=== PATIENT | male | born 1940 | race Two or more races ===

== ENCOUNTER → 2022-01-23 13:27 | Outpatient (BNVA) | payer OTHER, SELFPAY | PROVIDERS: PCP Internal Medicine; Visit Provider Psychiatry & Neurology Neurology | DX: I69.351 Hemiplegia and hemiparesis following cerebral infarction affecting right dominant side (principal); G47.00 Insomnia, unspecified; R06.83 Snoring; G25.81 Restless legs syndrome | CPT/HCPCS: 99202 ==

== ENCOUNTER → 2022-02-06 11:34 | Outpatient (REF) | payer OTHER, SELFPAY | LOC: HO.SL 11:34 | PROVIDERS: Visit Provider Psychiatry & Neurology Neurology | DX: G47.33 Obstructive sleep apnea (adult) (pediatric) (principal); G47.00 Insomnia, unspecified; G25.81 Restless legs syndrome; I63.9 Cerebral infarction, unspecified; R06.83 Snoring | CPT/HCPCS: 95806 ==